=== PATIENT | female | born 1960 ===

== ENCOUNTER 2020-05-19 01:14 | Inpatient (IN) ==
[2020-05-19] MEDS ORDERED: SODIUM CHLORIDE 0.9% 1,000 ML IV STA (02:09)
[2020-05-19] MEDS ORDERED: ONDANSETRON 4 MG/2 ML VIAL IV STA (02:11)
[2020-05-19] MEDS ORDERED: MORPHINE 4 MG/1 ML VIAL IV STA (02:11)
[2020-05-19 02:53] LABS: Bilirubin,Urine Negative (Negative); Blood, Urine Negative (Negative); Glucose,Urine (UA) Negative (Negative); Ketones,Urine Negative (Negative); Nitrite,Urine Negative (Negative); Protein,Urine Negative; RBC,Urine <1 /HPF (0-4); Urine Appearance CLEAR (Clear); Urine Color Straw (Yellow); Urine Specific Gravity 1.003 (1.001-1.035); Urine Urobilinogen < 2.0 EU/DL (0.2-1.0); WBC,Urine <1 /HPF (0-6)
[2020-05-19 03:03] LABS: Albumin 3.4 G/DL (3.4-5.0); Bilirubin,Total 0.4 MG/DL (0.2-1.0); Calcium 8.6 MG/DL (8.5-10.1); Osmolality,Calculated 270.1 MOS/KG (273-304); Total Protein 8.2 G/DL (6.4-8.3)
[2020-05-19] MEDS ORDERED: GLUCAGON 1 MG VIAL IM PRN (03:07)
[2020-05-19] MEDS ORDERED: DEXTROSE 50% 25 GM/50 ML VIAL IV PRN (03:07)
[2020-05-19] MEDS ORDERED: ONDANSETRON 4 MG/2 ML VIAL IV PRN (03:07)
[2020-05-19] MEDS ORDERED: THIAMINE INJ 100 MG, FOLIC ACID INJ 1 MG, MULTIVITAMIN INJ 10 ML in SODIUM CHLORIDE 0.9... IV ONE (03:07)
[2020-05-19] MEDS ORDERED: NICOTINE 21 MG/24 HR PATCH TRANSDERM PRN (03:07)
[2020-05-19 03:10] LABS: Basophils % 0.3 % (0.0-0.8); Eosinophils # 0.1 10*3/uL (0.0-0.87); Eosinophils % 1.1 % (0.00-10.9); Hematocrit 37.9 VOL% (35.7-47.0); Hemoglobin 12.6 GM/DL (12.0-16.0); Immature Granulocytes % 0.9 %; Immature Granulocytes Absolute 0.06 #; Lymphocytes # 1.4 10*3/uL (1.4-4.0); Lymphocytes % 20.9 % (21.3-54.2); Mean Corpuscular HGB Conc 33.2 GM/DL (32-36); Mean Corpuscular Volume 96.9 FL (87-102); Mean Platelet Volume 10.8 FL (9.6-12.0); Monocytes % 6.5 % (1.7-12.7); Neutrophils % 70.3 % (38.7-73.9); Platelet Count 143 T/CUMM (130-400); Red Blood Count 3.91 MC/CUMM (3.8-5.5); Red Cell Distribution Width 13.3 % (9.3-17.3); White Blood Count 6.5 T/CUMM (4-12)
[2020-05-19] MEDS ORDERED: POTASSIUM CHLORIDE RIDER 10 MEQ in PREMIX 1 EACH IV PRN (03:11)
[2020-05-19 03:22] LABS: PT Patient Result 10.9 SECS (9.8-11.9); Partial Thromboplastin Time 27.2 SECS (23.9-33.8)
[2020-05-19] MEDS: MORPHINE 4 MG/1 ML VIAL IV PRN ×3 (03:44→16:58)
[2020-05-19] MEDS ORDERED: POTASSIUM CHLORIDE 20 MEQ TABLET PO ONE (07:13)
[2020-05-19] MEDS ORDERED: GABAPENTIN 400 MG CAPSULE PO ONE (08:10)
[2020-05-19] MEDS ORDERED: DIAZEPAM 5 MG TABLET PO ONE (08:10)
[2020-05-19] MEDS ORDERED: ACETAMINOPHEN 500 MG TABLET PO ONE (08:10)
[2020-05-19] MEDS ORDERED: MIDAZOLAM 2 MG/2 ML VIAL ONE (08:17)
[2020-05-19] MEDS ORDERED: LIDOCAINE 2% 5 ML VIAL ONE (08:18)
[2020-05-19] MEDS ORDERED: propofoL 200 MG/20 ML VIAL IV ONE (08:18)
[2020-05-19] MEDS ORDERED: BUPIVACAINE SPINAL 0.75% 2 ML AMP SPINAL ONE (08:24)
[2020-05-19] MEDS ORDERED: LACTATED RINGERS 1,000 ML IV SCH (08:30)
[2020-05-19] MEDS ORDERED: fentaNYL 100 MCG/2 ML VIAL ONE ×2 (08:32→11:09)
[2020-05-19] MEDS ORDERED: ceFAZolin 1,000 MG VIAL ONE ×2 (09:55)
[2020-05-19] MEDS ORDERED: DEXAMETHASONE 4 MG/1 ML VIAL ONE ×2 (10:10)
[2020-05-19] MEDS ORDERED: NEOSTIGMINE 10 MG/10 ML VIAL ONE (10:34)
[2020-05-19] MEDS ORDERED: GLYCOPYRROLATE 0.4 MG/2 ML VIAL ONE (10:34)
[2020-05-19] MEDS ORDERED: LACTATED RINGERS 1,000 ML IV ONE (10:48)
[2020-05-19] MEDS ORDERED: ROPIVACAINE 0.5% 30 ML VIAL ONE (11:15)
[2020-05-19] MEDS: ceFAZolin 1,000 MG in SYRINGE 1 EACH IV SCH ×2 (12:02→20:15)
[2020-05-19] MEDS: ENOXAPARIN 40 MG/0.4 ML SYRINGE SUBCUT SCH (12:02)
[2020-05-19] MEDS: oxyCODONE/ACETAMINOPHEN 5-325 MG TABLET PO PRN (14:57)
[2020-05-20] MEDS: oxyCODONE/ACETAMINOPHEN 5-325 MG TABLET PO PRN ×4 (02:06→22:03)
[2020-05-20] MEDS: ceFAZolin 1,000 MG in SYRINGE 1 EACH IV SCH (03:50)
[2020-05-20 06:09] LABS: Basophils % 0.1 % (0.0-0.8); Hematocrit 29.5 VOL% (35.7-47.0); Immature Granulocytes % 0.6 %; Immature Granulocytes Absolute 0.04 #; Lymphocytes # 0.8 10*3/uL (1.4-4.0); Lymphocytes % 11.3 % (21.3-54.2); Mean Corpuscular HGB Conc 34.2 GM/DL (32-36); Mean Corpuscular Volume 96.7 FL (87-102); Mean Platelet Volume 11.6 FL (9.6-12.0); Monocytes % 9.3 % (1.7-12.7); Neutrophils % 78.7 % (38.7-73.9); Platelet Count 125 T/CUMM (130-400); Red Cell Distribution Width 13.3 % (9.3-17.3); White Blood Count 7.1 T/CUMM (4-12)
[2020-05-20 06:16] LABS: Calcium 7.9 MG/DL (8.5-10.1); Osmolality,Calculated 279.5 MOS/KG (273-304)
[2020-05-20 06:30] LABS: Hemoglobin 10.1 GM/DL (12.0-16.0); Red Blood Count 3.05 MC/CUMM (3.8-5.5)
[2020-05-20 06:37] LABS: Hypochromasia 1+; Microcytosis 1+
[2020-05-20] MEDS: ENOXAPARIN 40 MG/0.4 ML SYRINGE SUBCUT SCH (11:43)
[2020-05-20] MEDS: MORPHINE 4 MG/1 ML VIAL IV PRN (11:44)
[2020-05-21] MEDS: oxyCODONE/ACETAMINOPHEN 5-325 MG TABLET PO PRN ×3 (06:10→20:44)
[2020-05-21 06:13] LABS: Basophils % 0.2 % (0.0-0.8); Eosinophils # 0.1 10*3/uL (0.0-0.87); Eosinophils % 1.7 % (0.00-10.9); Hematocrit 30.2 VOL% (35.7-47.0); Hemoglobin 9.8 GM/DL (12.0-16.0); Immature Granulocytes % 0.9 %; Immature Granulocytes Absolute 0.05 #; Lymphocytes # 1.4 10*3/uL (1.4-4.0); Mean Corpuscular HGB Conc 32.5 GM/DL (32-36); Mean Corpuscular Volume 99.7 FL (87-102); Mean Platelet Volume 11.3 FL (9.6-12.0); Monocytes % 10.3 % (1.7-12.7); Neutrophils % 59.9 % (38.7-73.9); Platelet Count 114 T/CUMM (130-400); Red Blood Count 3.03 MC/CUMM (3.8-5.5); Red Cell Distribution Width 13.6 % (9.3-17.3); White Blood Count 5.3 T/CUMM (4-12)
[2020-05-21 06:33] LABS: Albumin 2.5 G/DL (3.4-5.0); Bilirubin,Direct 0.1 MG/DL (0.0-0.20); Bilirubin,Indirect 0.5 MG/DL (0.0-1.0); Bilirubin,Total 0.6 MG/DL (0.2-1.0); Hypochromasia 1+; Microcytosis 1+; Platelet Estimate Decreased; Total Protein 6.4 G/DL (6.4-8.3)
[2020-05-21 06:35] LABS: Calcium 8.2 MG/DL (8.5-10.1); Osmolality,Calculated 281.5 MOS/KG (273-304)
[2020-05-21] MEDS: ENOXAPARIN 40 MG/0.4 ML SYRINGE SUBCUT SCH (10:36)
[2020-05-22 04:52] LABS: Basophils % 0.3 % (0.0-0.8); Eosinophils # 0.1 10*3/uL (0.0-0.87); Hematocrit 30.1 VOL% (35.7-47.0); Hemoglobin 9.7 GM/DL (12.0-16.0); Immature Granulocytes % 0.7 %; Immature Granulocytes Absolute 0.04 #; Lymphocytes # 1.2 10*3/uL (1.4-4.0); Mean Corpuscular HGB Conc 32.2 GM/DL (32-36); Mean Corpuscular Volume 99.7 FL (87-102); Mean Platelet Volume 11.6 FL (9.6-12.0); Monocytes % 8.7 % (1.7-12.7); Neutrophils % 67.3 % (38.7-73.9); Platelet Count 116 T/CUMM (130-400); Red Blood Count 3.02 MC/CUMM (3.8-5.5); Red Cell Distribution Width 13.4 % (9.3-17.3); White Blood Count 5.9 T/CUMM (4-12)
[2020-05-22 05:10] LABS: Calcium 8.5 MG/DL (8.5-10.1); Hypochromasia 1+; Osmolality,Calculated 281.5 MOS/KG (273-304)
[2020-05-22 05:11] LABS: Microcytosis 1+; Platelet Estimate Adequate
[2020-05-22 05:12] LABS: Albumin 2.6 G/DL (3.4-5.0); Bilirubin,Direct 0.14 MG/DL (0.0-0.20); Bilirubin,Indirect 0.5 MG/DL (0.0-1.0); Bilirubin,Total 0.6 MG/DL (0.2-1.0); Total Protein 6.8 G/DL (6.4-8.3)
[2020-05-22] MEDS: oxyCODONE/ACETAMINOPHEN 5-325 MG TABLET PO PRN ×2 (07:14→13:20)
[2020-05-22 11:31] VITALS: BP 117/68
[2020-05-22] MEDS: ENOXAPARIN 40 MG/0.4 ML SYRINGE SUBCUT SCH (11:53)
== END 2020-05-22 14:11 | disposition swing bed (61) | DRG 481 ==
LOC: N.ED 01:14 → N.EDINP 03:07 → SUATTDRO 03:07 → N.3E 03:57
PROVIDERS: ADMIT Emergency Medicine; ATTEND Internal Medicine